=== PATIENT | male | born 1975 | race Caucasian/White ===

== ENCOUNTER 2018-09-25 08:28 | Outpatient (CLI) | payer BC, OTHER ==
[2018-09-25 10:46] LABS: BASOPHILS % (AUTO) 1.2 %; EOSINOPHILS # (AUTO) 0.1 10^3/uL (0.0-0.7); EOSINOPHILS % (AUTO) 3.4 %; HGB - HEMOGLOBIN 14.2 g/dL (14.0-18.0); LYMPHOCYTES # (AUTO) 1.2 10^3/uL (1.5-3.5); LYMPHOCYTES % (AUTO) 31.5 %; MEAN CORPUSCULAR HEMOGLOBIN 28.7 pg (27.0-31.0); MEAN CORPUSCULAR HGB CONC 33.3 g/dL (32.0-36.0); MEAN CORPUSCULAR VOLUME 86.1 fL (80.0-94.0); MONOCYTES # (AUTO) 0.4 10^3/uL (0.0-1.0); MONOCYTES % (AUTO) 9.5 %; NEUTROPHILS % (AUTO) 54.4 %; PLT - PLATELET COUNT 224 10^3/uL (130-450); RED BLOOD COUNT 4.95 10^6/uL (4.70-6.10); WHITE BLOOD COUNT 3.7 x10^3/uL (4.8-10.8)
[2018-09-25 11:09] LABS: ALBUMIN 4.3 g/dL (3.2-5.5); ALBUMIN/GLOBULIN RATIO 1.8 (1.0-2.2); ALKALINE PHOSPHATASE 40 IU/L (42-121); ALT ALANINE AMINOTRANSFERASE 28 IU/L (10-60); AST ASPARTATE AMINOTRANSFERASE 27 IU/L (10-42); BILIRUBIN,TOTAL 0.9 mg/dL (0.2-1.0); BUN - BLOOD UREA NITROGEN 23 mg/dL (6-20); CALCIUM 9.5 mg/dL (8.5-10.3); CARBON DIOXIDE - CO2 29 mmol/L (21-32); CHLORIDE 100 mmol/L (101-111); CHOL/HDL RATIO 5.7 (<5.0); CHOLESTEROL 281 mg/dL; CREATININE 0.7 mg/dL (0.6-1.2); GFR - MDRD 124 (>89); GLUCOSE 98 mg/dL (70-100); HDL CHOLESTEROL 49 mg/dL; LDL CHOLESTEROL,CALCULATED 211 mg/dL; LDL/HDL RATIO 4.3 (<3.6); SODIUM 137 mmol/L (135-145); TOTAL PROTEIN 6.7 g/dL (6.7-8.2); VLDL CHOLESTEROL 21 mg/dL
[2018-09-25 15:20] LABS: H. PYLORIS ANTIGEN STL NEGATIVE (Negative)
== END 2018-09-25 08:29 | disposition home or self-care (01) ==
LOC: LAB.F 08:28
PROVIDERS: ATTEND Registered Nurse
DX: R10.9 Unspecified abdominal pain (principal); Z00.00 Encounter for general adult medical examination without abnormal findings
CPT/HCPCS: 36415; 80053; 80061; 81599; 83721; 84443; 85025; 87177; 87209; 87338

== ENCOUNTER 2020-06-24 17:43 | Emergency (ER) | payer OTHER ==
[2020-06-24 17:53] VITALS: BP 132/84
[2020-06-24] MEDS ORDERED: BUFFERED LIDOCAINE 10 ML SYRINGE IU ONE (18:28)
--- NOTE | 2020-06-24 18:47 | ED Physician Documentation ---
PD HPI HEAD INJURY - Stated complaint Stated Complaint: HEAD LAC - Chief complaint Chief Complaint: Laceration - History obtained from History obtained from: Patient - Additional information Additional information: Patient comes emergency department chief complaint of facial laceration. He states he was using a tool and accidentally struck himself across the left side of the face with it. He states the main area that is bothering him is over his left lateral most superior orbital area, where he sustained a laceration. He did not lose consciousness. His last tetanus was within 10 years. No other complaints at this time. Review of Systems Ten Systems: 10 systems reviewed and negative Constitutional: reports: Reviewed and negative Eyes: reports: Reviewed and negative Ears: reports: Reviewed and negative Nose: reports: Reviewed and negative Throat: reports: Reviewed and negative Cardiac: reports: Reviewed and negative Respiratory: reports: Reviewed and negative GI: reports: Reviewed and negative : reports: Reviewed and negative Skin: reports: Laceration (s) Musculoskeletal: reports: Reviewed and negative Neurologic: reports: Head injury Psychiatric: reports: Reviewed and negative Endocrine: reports: Reviewed and negative Immunocompromised: reports: Reviewed and negative PD PAST MEDICAL HISTORY - Past Medical History Past Medical History: Yes Cardiovascular: Hypertension Respiratory: None Neuro: None Endocrine/Autoimmune: None GI: None : None HEENT: None Psych: None Musculoskeletal: None Derm: None - Past Surgical History Past Surgical History: Yes - Present Medications Home Medications: Ambulatory Orders Medication Instructions Recorded Confirmed atenoloL [Atenolol] 25 mg PO 11/11/12 11/11/12 - Allergies Allergies/Adverse Reactions: Allergies Allergy/AdvReac Type Severity Reaction Status Date / Time No Known Drug Allergies Allergy Verified 06/24/20 17:53 - Social History Does the pt smoke?: No Smoking Status: Never smoker Does the pt drink ETOH?: Yes Does the pt have substance abuse?: No - Immunizations Immunizations are current?: No Immunizations: Other immun not current - POLST Patient has POLST: No PD ED PE NORMAL - Vitals Vital signs reviewed: Yes - General General: Alert and oriented X 3, No acute distress, Well developed/nourished - HEENT HEENT: PERRL, EOMI, Moist mucous membranes, Other (1.5 cm laceration to left lateral supraorbital area, just a few millimeters inferior to eyebrow. Wound is about 3 mm in depth. Minimal active bleeding. 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 No: FB identified Skin layer closure: Nylon, Interrupted, Size #-0 - enter number (5.0), Sutures - enter # (3) Other: Patient tolerated well, No complications, Neurovascular intact, Tetanus UTD Complexity: Intermediate PD MEDICAL DECISION MAKING - ED course Complexity details: considered differential, d/w patient ED course: Laceration repaired as noted above. Discussed wound care with the patient. We have again discussed the timeline for suture removal, as well as the usual indications for return. Departure - Departure Disposition: 01 Home, Self Care Clinical Impression: Laceration Condition: Stable Instructions: ED Laceration Facial Sutr Tape Comments: Please keep your wound generally clean and dry. You may allow soap and water to run over the wound, but please do not rub, scrub, or immerse the wound until the sutures have been removed. In general, facial wounds should be rechecked in about 5 days. At that time, most likely the wound will be ready for sutures to be removed. You may have the wound checked at urgent care, [facility] or here in the emergency department. If you begin to notice redness spreading progressively away from the wound, or if the wound splits open and drains or looks "mushy," you should have it rechecked right away.
--- OUTSIDE RECORDS SUMMARY | 2020-06-25 04:55 | EXTERNAL MEDICAL SUMMARY RPT | Continuity of Care Document ---
:1975 Demographics Phone Unavailable Preferred Language Unknown Marital Status Unknown Mandaen Affiliation Unknown Race Unknown Ethnic Group Unknown Author Organization [place] Address [address] [phone] Phone Support Name Relationship Address Phone [facility] Unavailable Unavailable Unavailab le Allergies date description facility NO KNOWN ENVIRONMENTAL ALLERGIES [facility] NO KNOWN ALLERGIES [facility] LOVASTATIN [facility] No Known Drug Allergies [facility] Social History date description facility [phone]
== END 2020-06-24 18:51 | disposition home or self-care (01) ==
LOC: ED 17:43
DX: S01.81XA Laceration without foreign body of other part of head, initial encounter (principal); W27.8XXA Contact with other nonpowered hand tool, initial encounter; I10 Essential (primary) hypertension
CPT/HCPCS: 12011; 99281; 99282